=== PATIENT | female | born 1950 | race Caucasian/White ===

== ENCOUNTER → 2017-07-14 | Outpatient (CLI) | payer MEDICARE, BC ==
[2017-07-14 13:08] VITALS: BP 139/76; PULSE 83; TEMP 98; BMI 29.9
--- NOTE | 2017-07-14 14:12 | P.HPOB ---
History of Present Illness H&P Date: 07/14/17 Chief Complaint: The patient is here for her routine gynecologic exam and mammogram. This is a 66-year-old G0 with an LMP of 2000. The patient is without gynecologic complaints and denies any postmenopausal bleeding. Review of Systems She denies cardiac and G.I. problems. Respiratory: Occasional cough and congestion. She denies maltreatment or problems with falling. : she denies any significant problems with urinary leakage except if she doesn't get to the bathroom in time. Past Medical History Past Medical History: Asthma, Cancer (Skin cancer), GERD/Reflux, Hyperlipidemia , Hypertension, Osteoarthritis (OA) Additional Past Medical History / Comment(s): high cholesterol,Hx Bulimia History of Any Multi-Drug Resistant Organisms: None Reported Past Surgical History: No Surgical Hx Reported Additional Past Surgical History / Comment(s): Exploratory lap of ovaries.cataract,skin cancer,endometriosis sx, Lasic eye surgery. Colonoscopy 2016 Past Anesthesia/Blood Transfusion Reactions: No Reported Reaction Past Psychological History: Depression Smoking Status: Never smoker Past Alcohol Use History: Daily (1-2 per day.) Past Drug Use History: None Reported - Past Family History Father Family Medical History: Diabetes Mellitus, Myocardial Infarction ([place]) Sister(s) Family Medical History: Cancer Additional Family Medical History / Comment(s): Ovarian Cancer. States sister had a brain bleed and some clotting issues and that her 2 nieces have been diagnosed with Factor V Leiden. Medications and Allergies Home Medications Medication Instructions Recorded Confirmed Type Calcium Carbonate/Vitamin D3 1 tab PO DAILY 09/20/15 04/18/16 History [Calcium 600 + Vit D 400 Tablet] DULoxetine HCL [DULoxetine HCL] 60 mg PO HS 09/20/15 04/18/16 History Ezetimibe [Zetia] 10 mg PO HS 09/20/15 04/18/16 History Fish Oil/Dha/Epa [Fish Oil 1,200 1 cap PO DAILY 09/20/15 04/18/16 History mg Fish Oil] Fluticasone Nasal [place] [Flonase 1 spray EA NOSTRIL BID 09/20/15 04/18/16 History Nasal [place]] Fluticasone/Salmeterol [Advair Hfa 2 puff INHALATION RT-BID 09/20/15 04/18/16 History 115-21 Mcg Inhaler] Lactobacillus Acidophilus 1 tab PO DAILY 09/20/15 04/18/16 History [Acidophilus] Multivitamins, Thera Liquid 5 ml PO DAILY 09/20/15 04/18/16 History [Theragran Liquid] Omeprazole 40 mg PO BID 09/20/15 04/18/16 History Raloxifene [Evista] 60 mg PO HS 09/20/15 04/18/16 History Rosuvastatin [Crestor] 10 mg PO HS 09/20/15 04/18/16 History amLODIPine BES/OLMESARTAN MED 1 tab PO QAM 09/20/15 04/18/16 History [Harper 10-40 mg Tablet] Ibuprofen [Motrin] 600 mg PO Q8HR PRN #20 tab 04/18/16 Rx Estradiol [Estrace Cream 0.01%] 1 applicator VAGINAL DAILY 90 Days 07/14/17 Rx #1 gm Allergies Allergy/AdvReac Type Severity Reaction Status Date / Time No Known Allergies Allergy Verified 04/18/16 10:08 Exam - Vital Signs Vital signs: Vital Signs Temp Pulse BP 07/14/17 12:45 98.0 F 83 139/76 Intake and Output 07/13/17 07/14/17 07/14/17 22:59 06:59 14:59 Other: Weight 81.647 kg Patient Weight 07/15/17 06:59 Weight 81.647 kg This is a well-developed well-nourished white female who is alert and oriented times 3 in no acute distress. HEENT: Within normal limits. NECK: Supple without mass or thyromegaly. CHEST AND LUNGS: Clear to auscultation. HEART: Regular rate and rhythm. BREASTS: Are without mass or discharge. AXILLARY EXAM: Negative for adenopathy. BACK: Negative for CVA tenderness. ABDOMEN: Soft, nontender, without palpable masses. PELVIC EXAM: Normal external genitalia with mild to moderate atrophy. Cervix and vagina appear normal with mild to moderate atrophy. There is no unusual discharge. There is no evidence of prolapse. The uterus is midposition, nongravid size and nontender. There are no palpable adnexal masses or tenderness. RECTAL EXAM: rectovaginal exam is negative for mass or tenderness and is negative for occult blood. EXTREMITIES: Nontender. IMPRESSION: 1. 66-year-old menopausal female with normal gynecologic exam. 2. Doing well with Estrace vaginal cream. PLAN: 1. Pap smear was performed. 2. Self breast examination was discussed. 3. Screening mammogram will be done today. 4. Continue Estrace vaginal cream. 5. Osteoporosis prevention was discussed. I have recommended repeating bone density testing next year. 6. She will return in one year.
--- NOTE | 2017-07-15 14:18 | MM ---
Reason for exam: screening (asymptomatic). Last mammogram was performed 3 years and 4 months ago. History: Patient is postmenopausal and is nulliparous. Took hormonal contraceptives beginning at age 16. Took estrogen for 1 year beginning at age 62. Physical Findings: A clinical breast exam by your physician is recommended on an annual basis and results should be correlated with mammographic findings. MG 3D Screening Mammo W/Cad Bilateral CC and MLO view(s) were taken. Prior study comparison: March 10, 2014, right breast MG diagnostic mammo RT w CAD. May 06, 2013, [facility] DIGITAL RIGHT MAMMOGRAM w/CAD. There are scattered fibroglandular densities. There is chronic nodularity in the right breast. Focal asymmetry right lower inner quadrant, stable. Dystrophic and round calcifications on the right are new. No significant changes when compared with prior studies. ASSESSMENT: Benign, BI-RAD 2 RECOMMENDATION: Routine screening mammogram of both breasts in 1 year.
== END | disposition home or self-care (01) ==
LOC: WWCWWP 12:30
PROVIDERS: ATTEND Obstetrics & Gynecology
DX: Z12.31 Encounter for screening mammogram for malignant neoplasm of breast (principal)
CPT/HCPCS: 77063; 77067

== ENCOUNTER → 2018-09-14 | Outpatient (CLI) | payer MEDICARE, BC ==
[2018-09-14 13:14] VITALS: BP 117/73; PULSE 92; RESP 18; TEMP 97.9; BMI 29.9
--- NOTE | 2018-09-14 13:44 | P.HPOB ---
History of Present Illness H&P Date: 09/14/18 Chief Complaint: The patient is here for her routine gynecologic exam and ma mmogram. This is a 68-year-old G0 with an LMP of 2000. The patient is without gynecologic complaints. The patient is using estrogen vaginal cream which has been helpful for vaginal dryness associated with sexual intercourse. Review of Systems The patient's weight has been stable. She denies respiratory, cardiac and G.I. problems. She denies maltreatment or problems with falling. : she denies any significant problems with urinary leakage. Past Medical History Past Medical History: Asthma, Cancer, GERD/Reflux, Hyperlipidemia, Hypertension, Osteoarthritis (OA) Additional Past Medical History / Comment(s): Hx Bulimia. Melanoma skin cancer of the back 2018. 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 History of endometriosis History of Any Multi-Drug Resistant Organisms: None Reported Past Surgical History: No Surgical Hx Reported Additional Past Surgical History / Comment(s): Exploratory lap of ovaries.cataract,skin cancer,endometriosis sx, Lasic eye surgery. Colonoscopy 2017 Past Anesthesia/Blood Transfusion Reactions: No Reported Reaction Past Psychological History: Depression Smoking Status: Never smoker Past Alcohol Use History: Daily (One or 2 per day) Past Drug Use History: None Reported - Past Family History Father Family Medical History: Diabetes Mellitus, Myocardial Infarction ([place]), Pulmonary Embolus Sister(s) Family Medical History: Cancer Additional Family Medical History / Comment(s): Ovarian Cancer. States sister had a brain bleed and some clotting issues and that her 2 nieces have been diagnosed with Factor V Leiden. Mother Family Medical History: Hyperlipidemia Medications and Allergies Home Medications and Allergies Comment(s): She also takes a probiotic daily. Home Medications Medication Instructions Recorded Confirmed Type Calcium Carbonate/Vitamin D3 1 tab PO DAILY 09/20/15 09/14/18 History [Calcium 600 + Vit D 400 Tablet] DULoxetine HCL 60 mg PO HS 09/20/15 09/14/18 History Ezetimibe [Zetia] 10 mg PO HS 09/20/15 09/14/18 History Fish Oil/Dha/Epa [Fish Oil 1,200 1 cap PO DAILY 09/20/15 09/14/18 History mg Fish Oil] Fluticasone Nasal [place] [Flonase 1 spray EA NOSTRIL BID 09/20/15 09/14/18 History Nasal [place]] Fluticasone/Salmeterol [Advair Hfa 2 puff INHALATION RT-BID 09/20/15 09/14/18 History 115-21 Mcg Inhaler] Lactobacillus Acidophilus 1 tab PO DAILY 09/20/15 09/14/18 History [Acidophilus] Multivitamins, Thera Liquid 5 ml PO DAILY 09/20/15 09/14/18 History [Theragran Liquid] Omeprazole 40 mg PO BID 09/20/15 09/14/18 History Raloxifene [Evista] 60 mg PO HS 09/20/15 09/14/18 History Rosuvastatin [Crestor] 10 mg PO HS 09/20/15 09/14/18 History amLODIPine BES/OLMESARTAN MED 1 tab PO QAM 09/20/15 09/14/18 History [Harper 10-40 mg Tablet] Estradiol [Estrace Cream 0.01%] 1 applicator VAGINAL DAILY 90 Days 07/14/17 09/14/18 Rx #1 gm Allergies Allergy/AdvReac Type Severity Reaction Status Date / Time No Known Allergies Allergy Verified 09/14/18 12:58 Exam Vital Signs Temp Pulse Resp BP Pulse Ox 09/14/18 13:11 97.9 F 92 18 117/73 96 Intake and Output 09/13/18 09/14/18 09/14/18 22:59 06:59 14:59 Other: Weight 81.647 kg Height 5'5", weight 180 pounds, BMI 30 This is a well-developed well-nourished heavyset white female who is alert and oriented times 3 in no acute distress. HEENT: Within normal limits. NECK: Supple without mass or thyromegaly. CHEST AND LUNGS: Clear to auscultation. HEART: Regular rate and rhythm. BREASTS: Are without mass or discharge. AXILLARY EXAM: Negative for adenopathy. BACK: Negative for CVA tenderness. ABDOMEN: Soft, nontender, without palpable masses. PELVIC EXAM: Normal external genitalia with mild to moderate atrophy. Cervix and vagina appear normal with mild atrophy. There is no unusual discharge. There is no evidence of prolapse. The uterus is midposition, nongravid size and nontender. There are no palpable adnexal masses or tenderness. RECTAL EXAM: rectovaginal exam is negative for mass or tenderness and is negative for occult blood. EXTREMITIES: Nontender. IMPRESSION: 1. 68-year-old menopausal female with normal gynecologic exam. 2. The patient is doing well with Estrace vaginal cream for vaginal dryness. PLAN: 1. Pap smear was deferred since she had a normal one on 07/14/2017. 2. Self breast awareness was discussed with the patient. 3. Screening mammogram will be done today. 4. Osteoporosis prevention was discussed. I have stressed the importance of adequate calcium, vitamin D and regular exercise. Recommended amounts of calcium and vitamin D were also discussed. She states she does bone density testing through her primary care physician. 5. She states her primary care physician renewed her Estrace vaginal cream prescription. 6. She does get flu shots in the fall. 7.She was advised to return in one year for her annual well woman exam.
--- NOTE | 2018-09-15 09:41 | MM ---
Reason for exam: screening (asymptomatic). Last mammogram was performed 1 year and 2 months ago. History: Patient is postmenopausal, has history of other cancer at age 67, and is nulliparous. Took hormonal contraceptives beginning at age 16. Took estrogen for 1 year beginning at age 62. Physical Findings: A clinical breast exam by your physician is recommended on an annual basis and results should be correlated with mammographic findings. MG 3D Screening Mammo W/Cad Bilateral CC and MLO view(s) were taken. Prior study comparison: July 14, 2017, bilateral MG 3d screening mammo w/cad. March 10, 2014, right breast MG diagnostic mammo RT w CAD. The breast tissue is heterogeneously dense. This may lower the sensitivity of mammography. There are benign appearing round dystrophic calcifications bilaterally. There is no discrete abnormality. ASSESSMENT: Benign, BI-RAD 2 RECOMMENDATION: Routine screening mammogram of both breasts in 1 year.
== END | disposition home or self-care (01) ==
LOC: WWCWWP 12:44
PROVIDERS: ATTEND Obstetrics & Gynecology
DX: Z12.31 Encounter for screening mammogram for malignant neoplasm of breast (principal)
CPT/HCPCS: 77063; 77067

== ENCOUNTER → 2020-01-31 | Outpatient (CLI) | payer MEDICARE, BC ==
[2020-01-31 14:25] VITALS: BP 118/75; PULSE 92; RESP 18; TEMP 98.1
--- NOTE | 2020-01-31 17:44 | P.HPOB ---
History of Present Illness H&P Date: 01/31/20 Chief Complaint: The patient is here for her routine gynecologic exam. This is a 69-year-old G0 with an LMP of 2000. The patient is without gynecologic complaints. She continues to use estradiol vaginal cream for vaginal dryness associated with sexual intercourse. She finds this helpful. Review of Systems She is gained about 8 pounds over the last year. Respiratory: Some ALLERGY symptoms. She denies cardiac or GI problems. She denies maltreatment or injuries with falling. : She does get up about 2-3 times per night, but denies any significant problems with leakage. Past Medical History Past Medical History: Asthma, Cancer, GERD/Reflux, Hyperlipidemia, Hypertension, Osteoarthritis (OA) Additional Past Medical History / Comment(s): Hx Bulimia. Melanoma skin cancer of the back 2018. Chronic knee problems. 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 History of endometriosis History of Any Multi-Drug Resistant Organisms: None Reported Past Surgical History: No Surgical Hx Reported Additional Past Surgical History / Comment(s): Exploratory lap of ovaries.cataract,skin cancer,endometriosis sx, Lasic eye surgery. Colonoscopy 2017 Past Anesthesia/Blood Transfusion Reactions: No Reported Reaction Past Psychological History: Depression Smoking Status: Never smoker Past Alcohol Use History: Daily (2 per day) Past Drug Use History: None Reported Additional History: She has been since 1979 and is retired. - Past Family History Father Family Medical History: Diabetes Mellitus, Myocardial Infarction ([place]), Pulmonary Embolus Sister(s) Family Medical History: Cancer Additional Family Medical History / Comment(s): Ovarian Cancer. States sister had a brain bleed and some clotting issues and that her 2 nieces have been diagnosed with Factor V Leiden. Mother Family Medical History: Hyperlipidemia Medications and Allergies Home Medications Medication Instructions Recorded Confirmed Type Calcium Carbonate/Vitamin D3 1 tab PO DAILY 09/20/15 01/31/20 History [Calcium 600 + Vit D 400 Tablet] DULoxetine HCL 60 mg PO HS 09/20/15 01/31/20 History Ezetimibe [Zetia] 10 mg PO HS 09/20/15 01/31/20 History Fish Oil/Dha/Epa [Fish Oil 1,200 1 cap PO DAILY 09/20/15 01/31/20 History mg Fish Oil] Fluticasone Nasal [place] [Flonase 1 spray EA NOSTRIL BID 09/20/15 01/31/20 History Nasal [place]] Fluticasone/Salmeterol [Advair Hfa 2 puff INHALATION RT-BID 09/20/15 01/31/20 History 115-21 Mcg Inhaler] Lactobacillus Acidophilus 1 tab PO DAILY 09/20/15 01/31/20 History [Acidophilus] Multivitamins, Thera Liquid 5 ml PO DAILY 09/20/15 01/31/20 History [Theragran Liquid] Omeprazole 40 mg PO BID 09/20/15 01/31/20 History Raloxifene [Evista] 60 mg PO HS 09/20/15 01/31/20 History Rosuvastatin [Crestor] 10 mg PO HS 09/20/15 01/31/20 History amLODIPine BES/OLMESARTAN MED 1 tab PO QAM 09/20/15 01/31/20 History [Harper 10-40 mg Tablet] Estradiol [Estrace Cream 0.01%] 1 applicator VAGINAL DAILY 90 Days 07/14/17 01/31/20 Rx #1 gm Allergies Allergy/AdvReac Type Severity Reaction Status Date / Time No Known Allergies Allergy Verified 01/31/20 14:05 Exam Vital Signs Temp Pulse Resp BP Pulse Ox 01/31/20 14:06 98.1 F 92 18 118/75 98 Intake and Output 01/31/20 01/31/20 01/31/20 06:59 14:59 22:59 Other: Weight 85.275 kg Height 5 feet 3-1/2 inches, weight 188 pounds, BMI 32.8. This is a well-developed well-nourished white female who is alert and oriented times 3 in no acute distress. HEENT: Within normal limits. NECK: Supple without mass or thyromegaly. CHEST AND LUNGS: Clear to auscultation. HEART: Regular rate and rhythm. BREASTS: Are without mass or discharge. AXILLARY EXAM: Negative for adenopathy. BACK: Negative for CVA tenderness. ABDOMEN: Soft, nontender, without palpable masses. PELVIC EXAM: Normal external genitalia with mild to moderate atrophy. Cervix and vagina appear normal with mild atrophy. There is no unusual discharge. There is no evidence of prolapse. The uterus is midposition, nongravid size and nontender. There are no palpable adnexal masses or tenderness. RECTAL EXAM: Rectovaginal exam is negative for mass or tenderness and is negative for occult blood. EXTREMITIES: Nontender. IMPRESSION: 1. 69-year-old menopausal female with normal gynecologic exam. 2. The patient continues to do well with estradiol vaginal cream for vaginal dryness. PLAN: 1. Pap smear was performed. She had a normal one about 2-1/2 years ago in 2018. We will continue cervical screening and can consider discontinuing cervical screening after 3 negative Pap smears have been obtained. 2. Self breast awareness was discussed with the patient. 3. Screening mammogram is due and the order slip was given to the patient for this. 4. Osteoporosis prevention was discussed. I have stressed the importance of adequate calcium, vitamin D and regular exercise. Recommended amounts of calcium and vitamin D were also discussed. Bone density testing had previously been done through her primary care physician, but she believes she is overdue for this and it has been more than 5 years since her last one. I have recommended read petering the bone density test and the order slip was given to the patient for this. 5. Continue estradiol vaginal cream twice weekly. The patient states she has been given a prescription through her PCP for this. 6. She plans to get flu vaccination in the very near future. 7. The patient was advised to return in 1-2 years for her well woman examination.
--- NOTE | 2020-02-08 13:59 | P.PN ---
Progress Note - Text Progress Note Date: 02/08/20 OUTPATIENT FOLLOW-UP NOTE TEST(S)/RESULTS: Pap smear from 01/31/2020 was negative. METHOD OF NOTIFICATION: Patient was notified by phone. PATIENT COMMENTS: She is happy to hear this result. DIAGNOSIS: Negative Pap smear. DISCUSSION: She states she will make an appointment for her mammogram. PLAN: The patient was advised to return in 1-2 years for her well woman examination.
== END | disposition home or self-care (01) ==
LOC: WWCWWP 13:50
PROVIDERS: ATTEND Obstetrics & Gynecology
DX: Z53.9 Procedure and treatment not carried out, unspecified reason (principal)

== ENCOUNTER → 2020-01-31 | Outpatient (CLI) | payer MEDICARE, BC | END | disposition home or self-care (01) | LOC: LABPAT 13:52 | PROVIDERS: ATTEND Orthopaedic Surgery | DX: Z01.812 Encounter for preprocedural laboratory examination (principal) | CPT/HCPCS: 87070 ==

== ENCOUNTER → 2020-07-16 | Outpatient (CLI) | payer MEDICARE ==
--- NOTE | 2020-07-16 16:12 | BD ---
EXAMINATION TYPE: Axial Bone Density DATE OF EXAM: 07/16/2020 COMPARISON: NONE CLINICAL HISTORY: 69-year-old female postmenopausal screening Height: 63.5 Weight: 187.8 FRAX RISK QUESTIONS: Alcohol (3 or more units per day): no Family History (Parent hip fracture): no Glucocorticoids (More than 3mos): no (Ex: prednisone, prednisolone, methylprednisolone, dexamethasone, and hydrocortisone). History of Fracture in Adulthood: yes Secondary Osteoporosis: 1. Type 1 Diabetes: no 2. Hyperthyroidism: no 3. Menopause before 45: no 4. Malnutrition: no 5. Chronic liver disease: no Rheumatoid Arthritis: no Current Tobacco Use: no RISK FACTORS HISTORY OF: Family History of Osteoporosis: yes Active: yes Diet low in dairy products/other sources of calcium: no Postmenopausal woman: age 48 Take estrogen and/or progesterone medications: yes How lon years Lost more than 2 inches in height since high school: no MEDICATIONS: Crestor Osteoporosis Medications: Evista How Lon years Additional History: EXAM MEASUREMENTS: Bone mineral densitometry was performed using the [employer] System. Bone mineral density as measured about the Lumbar spine is: ----- L1-L4(G/cm2): 1.399 T Score Values are as follows: ----- L2: 1.3 ----- L3: 3.8 ----- L4: 1.6 ----- L1-L4: 1.8 Bone mineral density : baseline Bone mineral density about the R hip (g/cm2): 1.060 Bone mineral density about the L hip (g/cm2): 1.112 T Score values are as follows: -----R Neck: 0.2 -----L Neck: 0.5 -----R Total: 0.7 -----L Total: 1.0 Bone mineral density : baseline IMPRESSION: Normal (Values between +1 and -1 indicate normal bone mass). Consider repeating this study in 5 year s or sooner if there is some new clinical indication. NOTE: T-SCORE=SD OF THE YOUNG ADULT MEAN.
--- NOTE | 2020-07-17 10:49 | P.PN ---
Progress Note - Text Progress Note Date: 07/17/20 OUTPATIENT FOLLOW-UP NOTE TEST(S)/RESULTS: Bone density test done on 07/16/2020 was normal. METHOD OF NOTIFICATION: The patient was notified by phone. PATIENT COMMENTS: The patient believes she had a bone density test previously elsewhere about 9 years ago. The patient states her sister did have ovarian cancer. DIAGNOSIS: Normal bone density test. DISCUSSION: I have stressed the importance of continuing to get adequate calcium, vitamin D, and regular exercise. PLAN: Repeat the bone density test in 6 years. The mammogram also done on 07/16/2020 is pending. Because of the patient's family history of ovarian cancer in her sister, I am recommending yearly pelvic ultrasounds. The order sl ip for a pelvic ultrasound will be mailed to the patient.
--- NOTE | 2020-07-18 11:45 | MM ---
Reason for exam: screening (asymptomatic). Last mammogram was performed 1 year and 10 months ago. History: Patient is postmenopausal, has history of other cancer at age 67, and is nulliparous. Took hormonal contraceptives beginning at age 16. Took estrogen for 1 year beginning at age 62. Physical Findings: A clinical breast exam by your physician is recommended on an annual basis and results should be correlated with mammographic findings. MG 3D Screening Mammo W/Cad Bilateral CC and MLO view(s) were taken. Prior study comparison: September 14, 2018, bilateral MG 3d screening mammo w/cad. July 14, 2017, bilateral MG 3d screening mammo w/cad. There are scattered fibroglandular densities. No significant changes when compared with prior studies. ASSESSMENT: Benign, BI-RAD 2 RECOMMENDATION: Routine screening mammogram of both breasts in 1 year.
== END ==
LOC: RADMAMWWP 13:50
PROVIDERS: ATTEND Obstetrics & Gynecology
DX: Z12.31 Encounter for screening mammogram for malignant neoplasm of breast (principal); Z78.0 Asymptomatic menopausal state; Z80.41 Family history of malignant neoplasm of ovary; Z79.899 Other long term (current) drug therapy
CPT/HCPCS: 77063; 77067; 77080

== ENCOUNTER → 2020-08-30 | Outpatient (CLI) | payer MEDICARE ==
--- NOTE | 2020-08-31 07:48 | US ---
EXAMINATION TYPE: US pelvic complete DATE OF EXAM: 08/30/2020 COMPARISON: NONE CLINICAL HISTORY: Z80.41 Family history of malignant neoplasm of ova. Pt states family history of ova kera CA (sister at age 58)/ pt states no known issues at this time TECHNIQUE: Transabdominal (TA). Transabdominal sonographic images of the pelvis were acquired. Date of LMP: age 48, pt not on HRT's EXAM MEASUREMENTS: Uterus: 7.3 x 2.9 x 3.0 cm Endometrial Stripe: 0.8 cm Right Ovary: 1.7 x 1.2 x 1.4 cm Left Ovary: 1.6 x 1.1 x 1.5 cm 1. Uterus: Anteverted Heterogeneous, Probable small fibroid posterior body of uterus= 1.6 x 1.2 x 1.9 cm 2. Endometrium: Upper limits of normal 3. Right Ovary: wnl 4. Left Ovary: wnl 5. Bilateral Adnexa: wnl 6. Posterior cul-de-sac: wnl IMPRESSION: Leiomyomatous change of the uterus is suspected.
--- NOTE | 2020-09-04 10:34 | P.PN ---
Progress Note - Text Progress Note Date: 09/04/20 OUTPATIENT FOLLOW-UP NOTE TEST(S)/RESULTS: Pelvic ultrasound done on 08/30/2020 showed a small fibroid measuring 1.9 cm. There are no adnexal masses. METHOD OF NOTIFICATION: The patient was notified by phone. PATIENT COMMENTS: DIAGNOSIS: Small uterine fibroid with no evidence of ovarian masses. Family history of ovarian cancer in her sister. DISCUSSION: We have discussed the benign nature of uterine fibroids. PLAN: In view yearly pelvic ultrasounds because of her family history. She was a dvised to return in one year for her annual well woman exam.
== END | disposition home or self-care (01) ==
LOC: RADUSWWP 16:21
PROVIDERS: ATTEND Obstetrics & Gynecology
DX: Z12.73 Encounter for screening for malignant neoplasm of ovary (principal); Z80.41 Family history of malignant neoplasm of ovary
CPT/HCPCS: 76856

== ENCOUNTER 2021-06-22 13:38 | Emergency (ER) | payer MEDICARE ==
[2021-06-22] MEDS ORDERED: SODIUM CHLORIDE 0.9% 500 ML 500 ML IV ONE (14:13)
[2021-06-22 15:28] LABS: Basophils # (A) 0.1 k/uL (0-0.2); Basophils % (A) 0 %; Eosinophils # (A) 0.1 k/uL (0-0.7); Eosinophils % (A) 1 %; HCT 39.6 % (34.0-46.0); HGB 13.1 gm/dL (11.4-16.0); Lymphocytes # (A) 2.2 k/uL (1.0-4.8); Lymphocytes % (A) 20 %; MCH 29.2 pg (25.0-35.0); MCHC 33.1 g/dL (31.0-37.0); MCV 88.4 fL (80.0-100.0); Mean Platelet Volume 8.1; Monocytes # (A) 0.4 k/uL (0-1.0); Monocytes % (A) 4 %; Neutrophils # (A) 8.4 k/uL (1.3-7.7); Neutrophils % (A) 73 %; Platelet Count 225 k/uL (150-450); RBC 4.47 m/uL (3.80-5.40); WBC 11.4 k/uL (3.8-10.6)
[2021-06-22 15:46] LABS: African American GFR (CKD) >90 (>60 ml/min/1.73 sqM); Anion Gap 8 mmol/L; Blood Urea Nitrogen 14 mg/dL (7-17); Carbon Dioxide 22 mmol/L (22-30); Chloride 105 mmol/L (98-107); Glucose 80 mg/dL (74-99); Non-African American GFR(CKD) 86 (>60 ml/min/1.73 sqM); Sodium 135 mmol/L (137-145)
--- NOTE | 2021-06-22 15:59 | XR ---
EXAMINATION TYPE: XR forearm LT DATE OF EXAM: 06/22/2021 COMPARISON: NONE HISTORY: Redness and pain and swelling TECHNIQUE: 2 views FINDINGS: Radius and ulna appear intact. I see no fracture nor dislocation. There is diffuse subcutan eous edema around the forearm. IMPRESSION: Subcutaneous edema. No fracture.
[2021-06-22] MEDS ORDERED: CLINDAMYCIN 600 MG in DEXTROSE 5% IN WATER 50 ML IVPB STA ×2 (16:12)
--- NOTE | 2021-06-22 16:15 | ED ---
General Adult HPI - General Chief complaint: Skin/Abscess/Foreign Body Stated complaint: L arm sore Time Seen by Provider: 06/22/21 13:54 Source: patient, RN notes reviewed Mode of arrival: ambulatory Limitations: no limitations - History of Present Illness Initial comments: 70-year-old female presents emergency Department chief complaint of infection to her left arm. Patient states that she was scratched by her dog for 5 days ago started with little infection states she was in urgent care yesterday received Rocephin started on Augmentin. Patient symptoms seemed to worsen today in which she was advised to come emergency department. Patient has a mild discomfort no fevers or chills no night sweats. Patient denies any pain in her elbow or axill a at this time. - Related Data Home Medications Medication Instructions Recorded Confirmed Calcium Carbonate/Vitamin D3 1 tab PO DAILY 09/20/15 02/09/20 [Calcium 600 + Vit D 400 Tablet] DULoxetine HCL 60 mg PO HS 09/20/15 02/09/20 Ezetimibe [Zetia] 10 mg PO HS 09/20/15 02/09/20 Fish Oil/Dha/Epa [Fish Oil 1,200 1 cap PO DAILY 09/20/15 02/09/20 mg Fish Oil] Fluticasone Nasal [place] [Flonase 1 spray EA NOSTRIL BID 09/20/15 02/09/20 Nasal [place]] Fluticasone/Salmeterol [Advair Hfa 2 puff INHALATION RT-BID 09/20/15 02/09/20 115-21 Mcg Inhaler] Lactobacillus Acidophilus 1 tab PO DAILY 09/20/15 02/09/20 [Acidophilus] Multivitamins, Thera Liquid 5 ml PO DAILY 09/20/15 02/09/20 [Theragran Liquid] Omeprazole 40 mg PO DAILY 09/20/15 02/09/20 Raloxifene [Evista] 60 mg PO HS 09/20/15 02/09/20 Rosuvastatin [Crestor] 10 mg PO HS 09/20/15 02/09/20 amLODIPine BES/OLMESARTAN MED 1 tab PO QAM 09/20/15 02/09/20 [Harper 10-40 mg Tablet] Estradiol [Estrace Cream 0.01%] 1 applicator VAGINAL DIRECTED 02/09/20 02/09/20 Previous Rx's Medication Instructions Recorded Clindamycin HCl 300 mg PO Q6HR #40 cap 06/22/21 Allergies Allergy/AdvReac Type Severity Reaction Status Date / Time No Known Allergies Allergy Verified 06/22/21 13:43 Review of Systems ROS Statement: Those systems with pertinent positive or pertinent negative responses have been documented in the HPI. ROS Other: All systems not noted in ROS Statement are negative. Past Medical History Past Medical History: Asthma, Cancer, GERD/Reflux, Hyperlipidemia, Hypertension, Osteoarthritis (OA) Additional Past Medical History / Comment(s): Hx Bulimia. Melanoma skin cancer of the back 2018. PAST [employer] HISTORY: She has no history of STDs. History of end ometriosis History of Any Multi-Drug Resistant Organisms: None Reported Past Surgical History: No Surgical Hx Reported Additional Past Surgical History / Comment(s): Exploratory lap of ovaries.cataract,skin cancer,endometriosis sx, Lasik eye surgery. Colonoscopy 2017 Past Anesthesia/Blood Transfusion Reactions: No Reported Reaction, Motion Sickness Past Psychological History: Depression Smoking Status: Never smoker Past Alcohol Use History: Daily, Occasional Past Drug Use History: None Reported - Past Family History Father Family Medical History: Diabetes Mellitus, Myocardial Infarction ([place]), Pulmonary Embolus Sister(s) Family Medical History: Cancer Additional Family Medical History / Comment(s): Ovarian Cancer. States sister had a brain aneurym and brain bleed and some clotting issues Mother Family Medical History: Hyperlipidemia General Exam Limitations: no limitations General appearance: alert, in no apparent distress Head exam: Present: atraumatic, normocephalic, normal inspection Eye exam: Present: normal appearance, PERRL, EOMI. Absent: scleral icterus, conjunctival injection, periorbital swelling Respiratory exam: Present: normal lung sounds bilaterally. Absent: respiratory distress, wheezes, rales, rhonchi, stridor Cardiovascular Exam: Present: regular rate, normal rhythm, normal heart sounds. Absent: systolic murmur, diastolic murmur, rubs, gallop, clicks Extremities exam: Present: other (Left forearm there is erythema noted that is nearly circumferential distal of the elbow, proximal of the wrist patient pulses are equal bilaterally) Course Vital Signs 06/22/21 13:43 Temperature 97.2 F L Pulse Rate 95 Respiratory 18 Rate Blood Pressure 115/64 O2 Sat by Pulse 97 Oximetry Medical Decision Making - Medical Decision Making Patient has mild leukocytosis. I discussed the case with on-call hospitalist. They do recommend patient trying Bactrim or clindamycin for coverage of possible MRSA patient is otherwise stable vitals reviewed patient has mild leukocytosis. She has had 24 hours of antibiotics will continue on clindamycin and if worsened and then will be admitted. - Lab Data Result diagrams: 06/22/21 15:02 06/22/21 15:02 Lab Results 06/22/21 06/22/21 06/22/21 Range/Units 15:02 15:02 15:02 WBC 11.4 H (3.8-10.6) k/uL RBC 4.47 (3.80-5.40) m/uL Hgb 13.1 (11.4-16.0) gm/dL Hct 39.6 (34.0-46.0) % MCV 88.4 (80.0-100.0) fL MCH 29.2 (25.0-35.0) pg MCHC 33.1 (31.0-37.0) g/dL RDW 13.0 (11.5-15.5) % Plt Count 225 (150-450) k/uL MPV 8.1 Neutrophils % 73 % Lymphocytes % 20 % Monocytes % 4 % Eosinophils % 1 % Basophils % 0 % Neutrophils # 8.4 H (1.3-7.7) k/uL Lymphocytes # 2.2 (1.0-4.8) k/uL Monocytes # 0.4 (0-1.0) k/uL Eosinophils # 0.1 (0-0.7) k/uL Basophils # 0.1 (0-0.2) k/uL Sodium 135 L (137-145) mmol/L Potassium 4.0 (3.5-5.1) mmol/L Chloride 105 (98-107) mmol/L Carbon Dioxide 22 (22-30) mmol/L Anion Gap 8 mmol/L BUN 14 (7-17) mg/dL Creatinine 0.71 (0.52-1.04) mg/dL Est GFR (CKD-EPI)AfAm >90 (>60 ml/min/1.73 sqM) Est GFR (CKD-EPI)NonAf 86 (>60 ml/min/1.73 sqM) Glucose 80 (74-99) mg/dL Plasma Lactic Acid Eligio 0.8 (0.7-2.0) mmol/L Calcium 9.0 (8.4-10.2) mg/dL Disposition Clinical Impression: Left arm cellulitis Disposition: HOME SELF-CARE Condition: Stable Instructions (If sedation given, give patient instructions): Cellulitis (ED) Additional Instructions: Please return to the Emergency Department if symptoms worsen or any other concerns. Prescriptions: Clindamycin HCl 300 mg PO Q6HR #40 cap Is patient prescribed a controlled substance at d/c from ED?: No Referrals: Russ Hardy MD [Primary Care Provider] - 1-2 days Time of Disposition: 16:15
[2021-06-22 17:56] VITALS: BP 120/62; PULSE 94; RESP 16; TEMP 98.4
== END 2021-06-22 17:57 | disposition home or self-care (01) ==
LOC: EC 13:38
DX: L03.114 Cellulitis of left upper limb (principal); I10 Essential (primary) hypertension; J45.909 Unspecified asthma, uncomplicated; K21.9 Gastro-esophageal reflux disease without esophagitis; M19.90 Unspecified osteoarthritis, unspecified site; E78.5 Hyperlipidemia, unspecified; F32.A Depression, unspecified; Z79.899 Other long term (current) drug therapy
CPT/HCPCS: 36415; 80048; 83605; 85025; 87040; 96361; 96365; 99283

== ENCOUNTER → 2021-08-27 | Outpatient (CLI) | payer MEDICARE ==
[2021-08-27 15:20] VITALS: BP 118/75; PULSE 65; RESP 12; TEMP 98.3
--- NOTE | 2021-08-27 16:10 | P.HPOB ---
History of Present Illness H&P Date: 08/27/21 Chief Complaint: The patient is here for her routine gynecologic exam and ma mmogram. This is a 70-year-old G0 with an LMP of 2000. The patient is without gynecologic complaints. She is no longer sexually active. Review of Systems The patient's weight has been stable over the last year. She denies respiratory, cardiac, or G.I. problems. Past Medical History Past Medical History: Asthma, Cancer, GERD/Reflux, Hyperlipidemia, Hypertension, Osteoarthritis (OA) Additional Past Medical History / Comment(s): Hx Bulimia. Melanoma skin cancer of the back 2018. PAST [employer]EC[employer]IVE HISTORY: She has no history of STDs. History of endometriosis. History of Any Multi-Drug Resistant Organisms: None Reported Past Surgical History: No Surgical Hx Reported Additional Past Surgical History / Comment(s): Exploratory lap of ovaries.cataract,skin cancer,endometriosis sx, Lasik eye surgery. Colonoscopy 2017(next after 10y) Past Anesthesia/Blood Transfusion Reactions: No Reported Reaction, Motion Sickness Past Psychological History: Depression Smoking Status: Never smoker Past Alcohol Use History: Daily (1 per day) Past Drug Use History: None Reported Additional History: She has been since 1979 and is no longer sexually active. She is retired. - Past Family History Father Family Medical History: Diabetes Mellitus, Myocardial Infarction ([place]), Pulmonary Embolus Sister(s) Family Medical History: Cancer Additional Family Medical History / Comment(s): Ovarian Cancer. States sister had a brain aneurym and brain bleed and some clotting issues Mother Family Medical History: Hyperlipidemia Medications and Allergies Home Medications Medication Instructions Recorded Confirmed Type DULoxetine HCL 60 mg PO HS 09/20/15 08/27/21 History Ezetimibe [Zetia] 10 mg PO HS 09/20/15 08/27/21 History Fluticasone Nasal [place] [Flonase 1 spray EA NOSTRIL BID 09/20/15 08/27/21 History Nasal [place]] Fluticasone/Salmeterol [Advair Hfa 2 puff INHALATION RT-BID 09/20/15 08/27/21 History 115-21 Mcg Inhaler] Omeprazole 40 mg PO DAILY 09/20/15 08/27/21 History Raloxifene [Evista] 60 mg PO HS 09/20/15 08/27/21 History Rosuvastatin [Crestor] 10 mg PO HS 09/20/15 08/27/21 History amLODIPine BES/OLMESARTAN MED 1 tab PO QAM 09/20/15 08/27/21 History [Harper 10-40 mg Tablet] Estradiol [Estrace Cream 0.01%] 1 applicator VAGINAL DIRECTED 02/09/20 08/27/21 History Allergies Allergy/AdvReac Type Severity Reaction Status Date / Time No Known Allergies Allergy Verified 08/27/21 15:08 Exam Vital Signs Temp Pulse Resp BP Pulse Ox 08/27/21 15:15 98.3 F 65 12 118/75 99 Intake and Output 08/27/21 08/27/21 08/27/21 06:59 14:59 22:59 Other: Weight 85.275 kg Height 5 feet 3 inches, weight 188 pounds, BMI 33.3. This is a well-developed well-nourished white female who is alert and oriented times 3 in no acute distress. HEENT: Within normal limits. NECK: Supple without mass or thyromegaly. CHEST AND LUNGS: Clear to auscultation. HEART: Regular rate and rhythm. BREASTS: Are without mass or discharge. AXILLARY EXAM: Negative for adenopathy. BACK: Negative for CVA tenderness. ABDOMEN: Soft, nontender, without palpable masses. PELVIC EXAM: Normal external genitalia with mild to moderate atrophy. Cervix and vagina appear normal with mild to moderate atrophy. There is no unusual discharge. There is no evidence of prolapse. The uterus is midposition, nongravid size and nontender. There are no palpable adnexal masses or tenderness. RECTAL EXAM: Rectovaginal exam is negative for mass or tenderness and is negative for occult blood. EXTREMITIES: Nontender. IMPRESSION: 1. 70-year-old menopausal female with normal gynecologic exam. 2. Family history of ovarian cancer in her sister. PLAN: 1. Pap smear was deferred since she had a normal Pap smear on 01/31/2020. 2. Self breast awareness was discussed with the patient. We have also discussed symptoms associated with inflammatory breast cancer. 3. Screening mammogram will be done today. 4. Osteoporosis prevention was discussed. She had a normal bone density test done on 07/16/2020. She states she has been on Evista for many years through her PCP. She is wondering if she still needs to be on this. Based on her normal bone density testing, this is probably not necessary. She will discuss this with her PCP who has been prescribing this for her for many years. 5. Pelvic ultrasound is recommended because of her sister's history of ovarian cancer. The order slip was given to the patient for this. 6. She has completed her Covid vaccination series and did receive a booster. 7. She was advised to return in one year for her annual well woman exam.
--- NOTE | 2021-08-28 12:17 | MM ---
Reason for exam: screening (asymptomatic). Last mammogram was performed 1 year and 1 month ago. History: Patient is postmenopausal, has history of other cancer at age 67, and is nulliparous. Took hormonal contraceptives beginning at age 16. Took estrogen for 1 year beginning at age 62. Physical Findings: A clinical breast exam by your physician is recommended on an annual basis and results should be correlated with mammographic findings. MG 3D Screening Mammo W/Cad Bilateral CC and MLO view(s) were taken. Prior study comparison: July 16, 2020, bilateral MG 3d screening mammo w/cad. September 14, 2018, bilateral MG 3d screening mammo w/cad. There are scattered fibroglandular densities. There are benign appearing round calcifications bilaterally. There is chronic nodularity in the right breast. There is no discrete abnormality. ASSESSMENT: Benign, BI-RAD 2 RECOMMENDATION: Routine screening mammogram of both breasts in 1 year.
== END ==
LOC: WWCWWP 14:58
PROVIDERS: ATTEND Obstetrics & Gynecology
DX: Z12.31 Encounter for screening mammogram for malignant neoplasm of breast (principal); Z01.419 Encounter for gynecological examination (general) (routine) without abnormal findings; J45.909 Unspecified asthma, uncomplicated; M19.90 Unspecified osteoarthritis, unspecified site; E78.5 Hyperlipidemia, unspecified; I10 Essential (primary) hypertension; F32.A Depression, unspecified; K21.9 Gastro-esophageal reflux disease without esophagitis; Z79.51 Long term (current) use of inhaled steroids; Z78.0 Asymptomatic menopausal state; Z80.41 Family history of malignant neoplasm of ovary
CPT/HCPCS: 77063; 77067

== ENCOUNTER → 2021-10-21 | Outpatient (CLI) | payer MEDICARE ==
--- NOTE | 2021-10-21 19:53 | US ---
EXAMINATION TYPE: US pelvic complete DATE OF EXAM: 10/21/2021 COMPARISON: 08/30/2020 CLINICAL HISTORY: FAMILY HX OF OVARIAN CANCER. Family hx of ovarian ca.Patient not full did transvagi nal. sonographic images of the pelvis were acquired. Transvaginal sonographic images were medically neces michele to better assess the following anatomy: Uterus and ovaries. EXAM MEASUREMENTS: Uterus: 5.0 x 2.5 x 3.0 cm Endometrial Stripe: .9 cm 1. Uterus: Anteverted Hypoechoic area seen 1.5 x 1.0 x 1.7 cm. 2. Endometrium: Upper limits. 3. Right Ovary: Obscured by overlying bowel gas 4. Left Ovary: Obscured by overlying bowel gas 5. Bilateral Adnexa: wnl 6. Posterior cul-de-sac: wnl IMPRESSION: 1. Similar appearing fibroid within the uterus. 2. Nonvisualization of the ovaries. 3. No large cysts or ascites is identified within the adnexa.
== END | disposition home or self-care (01) ==
LOC: RADUSWWP 13:42
PROVIDERS: ATTEND Obstetrics & Gynecology
DX: D25.9 Leiomyoma of uterus, unspecified (principal)
CPT/HCPCS: 76830

== ENCOUNTER → 2022-08-25 | Outpatient (CLI) | payer MEDICARE ==
--- NOTE | 2022-08-25 14:47 | XR ---
EXAMINATION TYPE: XR chest 2V DATE OF EXAM: 08/25/2022 COMPARISON: NONE TECHNIQUE: PA and lateral views submitted. HISTORY: Cough FINDINGS: The lungs are clear and there is no pneumothorax, pleural effusion, or focal pneumonia. Heart size normal and no overt failure. Osseous structures demonstrate hypertrophic and degenerative changes of the spine. Hyperinflation lungs with a moderate sized hiatal hernia. Arthropathy of the shoulders. IMPRESSION: 1. No acute process. Moderate-sized hiatal hernia.
--- NOTE | 2022-08-25 14:49 | XR ---
EXAMINATION TYPE: XR sinus DATE OF EXAM: 08/25/2022 CLINICAL HISTORY: Facial pain , headache. TECHNIQUE: Chacko, Weber, and lateral image of the skull are obtained. COMPARISON: None. FINDINGS: The paranasal sinuses including the frontal and maxillary sinuses appear well aerated mild mucosal thickening involving the maxillary sinuses. 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 No air- fluid levels. Nasal septal deviation noted.. Orbital floors and parisi are intact. Facial bones appe ar intact. Incidental note made of hyperostosis of the frontal bone. IMPRESSION: Correlate for mild chronic maxillary sinusitis
== END | disposition home or self-care (01) ==
LOC: RADXRMAIN 13:35
PROVIDERS: ATTEND Internal Medicine
DX: K44.9 Diaphragmatic hernia without obstruction or gangrene (principal); J32.9 Chronic sinusitis, unspecified
CPT/HCPCS: 70220; 71046